=== PATIENT | female | born 1985 | race Caucasian/White ===

== ENCOUNTER → 2020-01-11 09:49 | Outpatient (BNVA) | payer BC, SELFPAY | PROVIDERS: Visit Provider Internal Medicine | DX: K58.9 Irritable bowel syndrome, unspecified (principal); R10.11 Right upper quadrant pain | CPT/HCPCS: 82784; 83516 ==

== ENCOUNTER 2020-01-13 16:17 | Outpatient (CLI) | payer BC, MEDICAID, SELFPAY ==
--- NOTE | 2020-01-13 16:24 | US_ITS ---
WS: [id number] ULTRASOUND ABDOMEN LIMITED CLINICAL INFORMATION: RIGHT UPPER QUADRANT PAIN COMPARISON: None. FINDINGS: Liver Size: Enlarged Craniocaudal length: 20.2 cm. Echogenicity: Coarse Surface nodularity: None. Mass (size and location): None. Bile ducts Intrahepatic ducts: Normal. Common bile duct diameter: 5.1 mm. Gallbladder Normal. Gallstones: None. Gallbladder sludge: None. Gallbladder wall thickening: None. Pericholecystic fluid: None. Sonographic Harper sign: Absent. Pancreas Normal as visualized. Right kidney: Normal. Hydronephrosis: None. Size: 11.3 cm x 5.2 cm x 4.1 cm. Abdominal aorta and IVC Visualized portions are normal. Ascites: None. US/US gall bladder [id number] IMPRESSION: 1. Hepatomegaly with mild diffuse fatty infiltration. 2. Gallbladder is normal. 3. No hydronephrosis in right kidney.
== END 2020-01-13 16:18 | disposition home or self-care (01) ==
LOC: RAD 16:23
PROVIDERS: Family Provider Nurse Practitioner Family; PCP Nurse Practitioner Family; Visit Provider Internal Medicine
DX: K76.0 Fatty (change of) liver, not elsewhere classified (principal); R10.11 Right upper quadrant pain
CPT/HCPCS: 76705

== ENCOUNTER 2020-01-14 08:07 | Day surgery (SDC) | payer BC, MEDICAID, SELFPAY ==
[2020-01-13 08:07] VITALS: BMI 34.7
[2020-01-14 08:36] LABS: OR HCG Qualitative Urine Negative (Negative)
[2020-01-14 08:37] VITALS: BP 129/78; PULSE 76; RESP 16; TEMP 36.4; O2SAT 97
--- NOTE | 2020-01-14 08:40 | ANES.PREANE2 ---
Pre-Anesthetic Assessment Pre-Anesthetic Assessment: Height/Weight: Height 1.68 m Weight 97.522 kg Preop Diagnosis: post prandial RUQ pain Proposed Procedure: Operation Date: 01/14/20 09:00 Proposed Procedures p EGD 43077 R10.11(Not Applicable) - Ken Coronado MD Was Beta Maida taken within 24 hours: N/A Last intake: Intake Last Liquid Date 01/14/20 Last Liquid Time 04:30 Last Solid Date 01/13/20 Last Solid Time 22:00 Social: Social History: No alcohol and No tobacco Exam: Pre-Anes Outpt Exam: alert, oriented x 3, clear to auscultation bilaterally and regular rate & rhythm Airway: Submandibular: WNL Cervical ROM: WNL Dentition: Full History/ROS: No significant history except as noted and No significant complaints Pulmonary: Pulmonary: Cough and None reported CV/HEM: CV/HEM: None reported : : None reported Hepatic: Hepatic: None reported GI: GI: None reported Metabolic: Metabolic: Thyroid (enlarged on US) Musc/skel: Musc/skel: None reported Neuropsych: Neuropsych: MATTHEW Anesthetic Plan: ASA status: 2 Anesthesia: MAC PFSH Anesthesia PFSH: Social History (Updated 01/11/20 @ 10:19 by KAMALJIT Woodall) Smoking and tobacco status: never smoked Alcohol intake: never Adopted: No Lives independently: Yes Marital status: Single History of recent travel: No Current gender identity: Female Data Anesthesia Other Labs: Laboratory Results - last 48 hr 01/14/20 08:34 Urine HCG, Qual Negative Cardiac Studies: No Data to Display
[2020-01-14] MEDS: sodium chloride 0.9% 1,000 ML 30 ML (08:42)
--- NOTE | 2020-01-14 09:09 | W.PM.OPSUD ---
Surgery/Procedure H&P Update DATE OF PROCEDURE: January 14, 2020 DATE H&P PERFORMED: 01/11/20 PREOP DIAGNOSIS: post prandial RUQ pain PLANNED PROCEDURE: Operation Date: 01/14/20 09:00 Proposed Procedures p EGD 91414 R10.11(Not Applicable) - Ken Coronado MD
[2020-01-14 09:26] VITALS: BP 115/66; PULSE 76; RESP 16; TEMP 36.6; O2SAT 95
[2020-01-14 09:41] VITALS: BP 119/78; PULSE 66; RESP 18; TEMP 36.5; O2SAT 99
--- NOTE | 2020-01-14 09:42 | ANE.PACU2 ---
 Inpatient post-anesthesia follow up: Airway intact: Yes Vital signs: Temperature 97.9 F Pulse Rate 76 Respiratory Rate 16 Blood Pressure 115/66 Pulse Oximetry 95 Oxygen Delivery Me thod Room Air Oxygen Flow Rate Fraction of Inspir ed Oxygen Hydration adequate: Yes Nausea and vomiting: No Mental status: Baseline
== END 2020-01-14 10:05 | disposition home or self-care (01) ==
PROVIDERS: Family Provider Nurse Practitioner Family; PCP Nurse Practitioner Family; Visit Provider Internal Medicine
PROC: 0DJ08ZZ Inspection of Upper Intestinal Tract, Via Natural or Artificial Opening Endoscopic (ICD-10-PCS; CPT 43235; principal; 2020-01-14 09:00)
DX: R10.11 Right upper quadrant pain (principal)
CPT/HCPCS: 12345; 43235; 84703; J2001; J2704; J3010; J7030

== ENCOUNTER 2020-02-16 08:56 | Outpatient (CLI) | payer MEDICAID, SELFPAY ==
--- NOTE | 2020-02-16 09:04 | MM_ITS ---
WS: [id number] LEFT DIGITAL MAMMOGRAPHY WITH CAD CLINICAL INFORMATION: LT BREAST LUMP HISTORY: Left breast lump COMPARISON: None. TECHNIQUE: 4 views of the left breast were obtained. FINDINGS: Scattered fibroglandular densities of the left breast. Palpable marker area of concern lower inner qu adrant left breast. No definite mammographic abnormalities in this area. Ultrasound is pending. ULTRASOUND BREAST LEFT TECHNIQUE: Ultrasound left breast focused area of concern. CLINICAL INFORMATION: LT BREAST LUMP COMPARISON: None. FINDINGS: Ultrasound left breast in the area of concern at the 6:00 position. No evidence of cystic or solid ma ss. Normal underlying parenchymal tissue. No lesions to target for biopsy. MM/[place] [id number] IMPRESSION: BI-RADS: 2-Benign FOLLOW UP: Age 42 Recommend annual screening mammography age 42.
== END 2020-02-16 08:57 | disposition home or self-care (01) ==
LOC: RADSHAW 08:57
PROVIDERS: Family Provider Nurse Practitioner Family; PCP Nurse Practitioner Family; Visit Provider Nurse Practitioner Family
DX: N63.23 Unspecified lump in the left breast, lower outer quadrant (principal)
CPT/HCPCS: 76642; 77065

== ENCOUNTER → 2020-07-18 15:31 | Outpatient (BNVA) | payer BC, MEDICAID, SELFPAY | PROVIDERS: Family Provider Nurse Practitioner Family; PCP Nurse Practitioner Family; Visit Provider Obstetrics & Gynecology | DX: N93.9 Abnormal uterine and vaginal bleeding, unspecified (principal); N90.9 Noninflammatory disorder of vulva and perineum, unspecified | CPT/HCPCS: 83001; 84146; 84443; 84702; 85025; 87491; 87591; 87661 ==

== ENCOUNTER → 2020-08-03 16:19 | Outpatient (BNVA) | payer BC, MEDICAID, SELFPAY | PROVIDERS: Family Provider Nurse Practitioner Family; PCP Nurse Practitioner Family; Visit Provider Obstetrics & Gynecology | DX: N90.9 Noninflammatory disorder of vulva and perineum, unspecified (principal) | CPT/HCPCS: 88305 ==

== ENCOUNTER → 2020-09-02 17:01 | Outpatient (BNVA) | payer BC, MEDICAID, SELFPAY | PROVIDERS: Family Provider Nurse Practitioner Family; PCP Nurse Practitioner Family; Visit Provider Nurse Practitioner Family | DX: Z11.59 Encounter for screening for other viral diseases (principal) | CPT/HCPCS: 87635 ==

== ENCOUNTER 2020-11-17 14:36 | Outpatient (CLI) | payer BC, SELFPAY ==
--- NOTE | 2020-11-17 14:51 | XR_ITS ---
WS: [id number] Exam: XR KUB [id number] Date/Time of Exam: 11/17/2020 2:52 PM Reason For Exam: pain No bowel obstruction or free air. Visualized organ margins are intact. Bony structures appear normal. XR/XR KUB [id number] IMPRESSION: 1. No acute abdominal finding.
== END 2020-11-17 14:37 | disposition home or self-care (01) ==
LOC: RAD 14:42
PROVIDERS: PCP Nurse Practitioner Family; Visit Provider Nurse Practitioner
DX: R10.9 Unspecified abdominal pain (principal)
CPT/HCPCS: 74018; 81000; 87086

== ENCOUNTER 2021-06-07 10:05 | Outpatient (CLI) | payer OTHER, BC, MEDICAID, SELFPAY ==
--- NOTE | 2021-06-07 10:15 | XR_ITS ---
WS: [id number] INDICATION: Vaginal cyst TECHNIQUE: IVP with radiographs at 0, 5, 10, 15 minutes and post void, 100 cc of Omni 240 FINDINGS: Comparison ultrasound June 07, 2021. No evidence of vesiculovaginal fistula. No abnormal contrast opacification in the pelvis. Normal crop scout imaging. Normal corticomedullary uptake. Normal opacification of the renal pelvises and calyces. Normal ureteral opacification on the 5 minute images. Normal opacification of the bladder wi th normal contour. Ureteral course is normal. Normal post void imaging with normal emptying of the bl adder. XR/XR IVP w KUB [id number] IMPRESSION: 1. No evidence of vesiculovaginal fistula or abnormal contrast opacification o f the pelvis. 2. Normal bladder contour with adequate emptying. 3. Otherwise normal IVP
[2021-06-07] MEDS: iohexol 240 mg/mL 50 mL Btl INTRATHECA ×2 (11:21→11:22)
== END 2021-06-07 10:06 | disposition home or self-care (01) ==
LOC: RAD 10:11
PROVIDERS: Visit Provider Obstetrics & Gynecology
DX: N89.8 Other specified noninflammatory disorders of vagina (principal)
CPT/HCPCS: 74400; 76830

== ENCOUNTER → 2021-09-24 13:11 | Outpatient (BNVA) | payer OTHER, BC, MEDICAID, SELFPAY | PROVIDERS: PCP Registered Nurse; Visit Provider Obstetrics & Gynecology | DX: N89.8 Other specified noninflammatory disorders of vagina (principal) | CPT/HCPCS: 76830 ==

== ENCOUNTER → 2021-09-28 15:48 | Outpatient (BNVA) | payer OTHER, BC, MEDICAID, SELFPAY | PROVIDERS: PCP Registered Nurse; Visit Provider Obstetrics & Gynecology | DX: Z67.41 Type O blood, Rh negative (principal) | CPT/HCPCS: 86850 ==

== ENCOUNTER → 2021-12-08 12:57 | Outpatient (BNVA) | payer OTHER, BC, MEDICAID, SELFPAY | PROVIDERS: PCP Nurse Practitioner Family; Visit Provider Registered Nurse Neonatal Intensive Care | DX: R10.9 Unspecified abdominal pain (principal); N39.0 Urinary tract infection, site not specified | CPT/HCPCS: 81000 ==

== ENCOUNTER 2021-12-31 14:05 | Outpatient (CLI) | payer OTHER, BC, MEDICAID, SELFPAY ==
--- NOTE | 2021-12-31 13:30 | US_ITS ---
WS: [id number] TRANSVAGINAL PELVIC ULTRASOUND HISTORY: Follow-up vaginal cyst. COMPARISON: 09/24/2021, 06/07/2021. Uterus: 7.8 cm x 4.2 cm x 2.7 cm. Normal size anteverted uterus. No fibroid or mass. Again noted is a complex cyst along the vaginal wall measuring 1.4 x 1.3 x 1.3 cm. Cyst is unchanged in size and appe arance. Endometrium: 0.4 cm. Normal. Neither ovary is identified. No adnexal mass. US/US transvaginal [id number] IMPRESSION: 1. No change in the vaginal wall cyst now measuring 1.4 x 1.3 x 1.3 cm. 2. Normal endometrium. 3. Neither ovary is identified.
== END 2021-12-31 14:06 | disposition home or self-care (01) ==
LOC: RAD 14:08
PROVIDERS: PCP Nurse Practitioner Family; Visit Provider Obstetrics & Gynecology
DX: N89.8 Other specified noninflammatory disorders of vagina (principal)
CPT/HCPCS: 76830

== ENCOUNTER → 2022-08-02 16:53 | Outpatient (BNVA) | payer BC, MEDICAID, SELFPAY | PROVIDERS: PCP Registered Nurse; Visit Provider Registered Nurse Neonatal Intensive Care | DX: J02.9 Acute pharyngitis, unspecified (principal) | CPT/HCPCS: 87880 ==

== ENCOUNTER → 2022-10-11 13:18 | Outpatient (BNVA) | payer BC, MEDICAID, SELFPAY | PROVIDERS: PCP Registered Nurse; Visit Provider Nurse Practitioner Family | DX: J02.9 Acute pharyngitis, unspecified (principal) | CPT/HCPCS: 87880 ==

== ENCOUNTER 2022-12-09 12:55 | Outpatient (CLI) | payer BC, MEDICAID, SELFPAY ==
--- NOTE | 2022-12-09 | US_ITS ---
WS: [id number] ULTRASOUND SOFT TISSUES RIGHT axilla. HISTORY: PAIN IN RIGHT AXILLA COMPARISON: None available. TECHNIQUE: 2-D and color Doppler imaging is submitted. Ultrasound is directed to the RIGHT axilla in the area of pain. There are benign lymph nodes in the a xilla with the largest measuring 2.6 x 1.2 x 2.5 cm. No solid mass or shadowing. US/US soft tissue/extremity [id number] IMPRESSION: Benign lymph nodes RIGHT axilla.
--- NOTE | 2022-12-09 13:09 | MM_ITS ---
WS: [id number] BILATERAL 3D TOMOSYNTHESIS DIGITAL SCREENING MAMMOGRAPHY WITH CAD CLINICAL INFORMATION: RT BREAST PAIN HISTORY: Screening mammogram. No current complaints. COMPARISON: February 16, 2020 TECHNIQUE: Bilateral CC and MLO views. FINDINGS: Scattered fibroglandular densities bilaterally. No suspicious focal mass, asymmetry, calcifications, or architectural distortion. No suspicious parenchymal abnormalities in the areas of interest bilater ally. Ultrasound bilateral described below. ULTRASOUND BREAST BILATERAL TECHNIQUE: Ultrasound bilateral breast focused area of concern. CLINICAL INFORMATION: RT BREAST PAIN COMPARISON: February 16, 2020 FINDINGS: RIGHT BREAST: Ultrasound RIGHT breast 10:00 position. Normal underlying parenchymal tissue. No cystic or solid lesions. No suspicious lesions to target for biopsy. LEFT BREAST: Ultrasound LEFT breast 3:00 position 4 cm from the nipple. Normal underlying parenchymal breast tissue. No cystic or solid lesions. No suspicious lesions to target for biopsy. MM/[place] [id number] IMPRESSION: BI-RADS: 2-Benign FOLLOW UP: Age 42 Recommend annual screening mammography age 42
== END 2022-12-09 12:56 | disposition home or self-care (01) ==
LOC: RAD 12:56
PROVIDERS: PCP Registered Nurse; Visit Provider Registered Nurse
DX: N64.4 Mastodynia (principal); M79.621 Pain in right upper arm
CPT/HCPCS: 76642; 76882; 77062; G0279

== ENCOUNTER → 2023-02-17 09:06 | Outpatient (BNVA) | payer BC, SELFPAY | PROVIDERS: PCP Registered Nurse; Visit Provider Registered Nurse | DX: K58.0 Irritable bowel syndrome with diarrhea (principal) | CPT/HCPCS: 86003 ==

== ENCOUNTER → 2023-02-24 10:59 | Outpatient (BNVA) | payer BC, SELFPAY | PROVIDERS: PCP Registered Nurse; Visit Provider Registered Nurse | DX: K58.0 Irritable bowel syndrome with diarrhea (principal) | CPT/HCPCS: 86003; 86008 ==

== ENCOUNTER 2023-07-17 10:55 | Outpatient (CLI) | payer BC, MEDICAID, SELFPAY ==
--- NOTE | 2023-07-17 12:55 | P.DIET_ITS ---
Reason for Visit: K58.0 - Irritable bowel syndrome with diarrhea Person Interviewed: Patient Medical History, Labs and Background: Pt has struggled with IBS since 2008 - frequent diarrhea, pain, nausea and gas. Her current work situation has worsened stress and she has noticed an uptick in symptoms. Height: 5 ft 6 in Weight: 228 lb BMI: 36.9 kg/m2, class 2 obesity IBW: 130 lbs Concerns and Goals: Pt's major concern is managing her IBS symptoms. Sleep Hygiene: Usually she doesn't have issues with sleep. If she wakes up she is able to go back to sleep. Physical Activity: Activity is difficult when she has so much pain and bloating, etc. Zoomba is something she enjoys, as well as walking. GI Symptoms: Nausea, Abdominal Pain and Diarrhea Other Feeding Issues: When she is at work form 8-3 or 4 pm, she doesn't eat for fear of symptoms being even worse. 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 Meds, Supplements & Other: She sometimes takes Ultra zyme - a digestive enzyme supplement. 24 Hour Recall: Breakfast Time: 10 leftovers from night before Snack Time: Lunch Time: egg + turkey sausage - few bites Snack Time: 2 bowls of white cheddar popcorn Dinner Time: catfish+grilled chx+ potstickers Snack Time: Eating Out: She often eats out and tries to pick foods that don't trigger her IBS symptoms. Soda vs Milk vs Water: Jeanette drinks water, peppermint tea, lemon/baer kambucha, no alcohol or coffee Additional Comments: It was difficult to pick a typical day of eating. 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 The stress of work has increased with a new boss who doesn't allow her to [facility] as the old boss did, even though she has provided letters from medical territory manager. Recommendations: Assessment: Jeanette is looking for relief from her IBS symptoms. Because her stress level is higher with her new boss, there is a corresponding worsening of pain and diarrhea - to the point of almost embarrassing accidents while driving to and from work. We discussed a low FODMAP diet as well as pre/probiotics and a digestive enzyme she has been taking. Nutrition Dx: Inadequate oral intake r/t IBS symptoms AEB excessive fasting for work and not eating appropriate foods Intervention: We discussed a couple of handouts that were given to her and that she marked with highlighters while in the office which discussed how to implement a low FODMAP diet and manage IBS symptoms with diet. Articles on IBS and diet as well as explanation of a FODMAP diet were emailed plus articles on pre/probiotics and managing stress. Monitoring and Evaluation: We discussed using email for additional questions and monitoring, so I already sent it with links and my contact information. Coding Level of Care Code Nutrition/Individ/Init 60 min
== END 2023-07-17 10:56 | disposition home or self-care (01) ==
PROVIDERS: PCP Registered Nurse; Visit Provider Registered Nurse
DX: Z71.3 Dietary counseling and surveillance (principal); K58.0 Irritable bowel syndrome with diarrhea; Z68.36 Body mass index [BMI] 36.0-36.9, adult
CPT/HCPCS: 97802